=== PATIENT | female | born 1970 | race Caucasian/White ===

== ENCOUNTER 2017-02-22 22:49 | Emergency (ER) | payer MEDICARE, MEDICAID ==
[~2017-02-22] VITALS: Ht 152.4 cm; Wt 108.9 kg
[2017-02-22 22:49] VITALS: BP 134/84
[~2017-02-22 22:49] MED LIST: ASCO500T2 PO; ATOR10TA PO; B12 PO; CLON0.5T PO; FLUO40CA9 PO; GABA-585 PO; HUMALOG SQ; HYDR-971 PO; INSU100V SQ; LANTUS SQ; METF500T9 PO; OMEP20TA63 PO; TRAZ300T2 PO; VIT D3 PO; VITAMINB PO
--- NOTE | 2017-02-22 23:08 | ED.ADGEN ---
Past History Past Medical History: Anxiety, Diabetes, GERD, High Cholesterol, Hypertension, Other Past Surgical History: No Surgical History Alcohol Use: None Drug Use: None Adult General Chief Complaint Chief Complaint dysuria HPI HPI Patient is a 46 y/o female with dysuria x 1 day. she noticed blood in urine, pain suprapubic and with urination, no diarrhea, no fever, no vomiting Review of Systems Review of Systems Constitutional: Denies fever or chills [] Eyes: Denies change in visual acuity, redness, or eye pain [] HENT: Denies nasal congestion or sore throat [] Respiratory: Denies cough or shortness of breath [] Cardiovascular: No additional information not addressed in HPI [] GI: Denies abdominal pain, nausea, vomiting, bloody stools or diarrhea [] : + dysuria or hematuria [] Musculoskeletal: Denies back pain or joint pain [] Integument: Denies rash or skin lesions [] Neurologic: Denies headache, focal weakness or sensory changes [] Endocrine: Denies polyuria or polydipsia [] All other systems were reviewed and found to be within normal limits, except as documented in this note. Allergies Allergies Allergies Coded Allergies Type Severity Reaction Last Updated Verified ketorolac Allergy Severe Rash 09/11/15 Yes tramadol Allergy Severe Rash 09/11/15 Yes Sulfa (Sulfonamide Antibiotics) Allergy Intermediate Rash 09/11/15 Yes sulfamethoxazole Allergy Intermediate 09/11/15 Yes trimethoprim Allergy Intermediate 09/11/15 Yes Physical Exam Physical Exam Constitutional: Well developed, well nourished, no acute distress, non-toxic appearance. [] HENT: Normocephalic, atraumatic, bilateral external ears normal, oropharynx moist, no oral exudates, nose normal. [] Eyes: PERRLA, EOMI, conjunctiva normal, no discharge. [] Neck: Normal range of motion, no tenderness, supple, no stridor. [] Cardiovascular:Heart rate regular rhythm, no murmur [] Lungs & Thorax: Bilateral breath sounds clear to auscultation [] Abdomen: Bowel sounds normal, soft, no tenderness, no masses, no pulsatile masses. [] Skin: Warm, dry, no erythema, no rash. [] Back: No tenderness, no CVA tenderness. [] Extremities: No tenderness, no cyanosis, no clubbing, ROM intact, no edema. [] Neurologic: Alert and oriented X 3, normal motor function, normal sensory function, no focal deficits noted. [] Psychologic: Affect normal, judgement normal, mood normal. [] Current Patient Data Vital Signs Vital Signs Date Time Temp Pulse Resp B/P (MAP) Pulse Ox O2 Delivery O2 Flow Rate FiO2 02/22/17 22:49 98.2 82 16 96 Room Air Lab Results Laboratory Tests Test 02/22/17 23:00 Urine Collection Type Void Urine Color Yellow Urine Clarity Clear Urine pH 6.0 Urine Specific [place] 1.020 Urine Protein Neg (NEG-TRACE) Urine Glucose (UA) Neg mg/dL (NEG) Urine Ketones (Stick) Neg mg/dL (NEG) Urine Blood Trace (NEG) Urine Nitrite Neg (NEG) Urine Bilirubin Neg (NEG) Urine Urobilinogen Dipstick 0.2 mg/dL (0.2 mg/dL) Urine Leukocyte Esterase Neg (NEG) Urine RBC 0 /HPF (0-2) Urine WBC Occ /HPF (0-4) Urine Squamous Epithelial Cells Few /LPF Urine Bacteria Few /HPF (0-FEW) Urine Test Negative (NEG) EKG EKG [] Radiology/Procedures Radiology/Procedures [] Course & Med Decision Making Course & Med Decision Making Pertinent Labs and Imaging studies reviewed. (See chart for details) pt has taken macrobid before. will do 7 days macrobid. I asked her not to fill this for 1-2 days. Pt was just seen at [place] in [facility] adn discharge 1.5hours prior to checking in here. I confronted her about this. she finally admitted that she was there. she was there for esophageal obstruction and the doc stated she was swallowing water in the room with no difficulty. pt wanted an EGD and was upset that he would not do it per his note and she left. I asked her why she had that complaint when she is obviously fine now and then checks in here for dysuria. I reminded her that I saw her at my full-time hospital 1- 2 weeks ago and found out she had lied about being at another hospital literally hours prior with a full work-up done. she states she doesn't know why she keeps going to different hospitals multiple times in one day. I reminded her again to call her psychiatrist immediately to discuss her escalating poor behaviour [] Final Impression Final Impression dysuria[] Problems: Dragon Disclaimer Dragon Disclaimer This electronic medical record was generated, in whole or in part, using a voice recognition dictation system. Departure Time of Disposition: 23:35 Disposition: 01 HOME, SELF-CARE Diagnosis: dysuria Condition: STABLE Patient Instructions: Dysuria-Brief Additional Instructions: start macrobid today. return if symptoms worsen REA RODRIGUEZ MD Feb 22, 2017 23:08
[2017-02-22 23:12] LABS: BILIRUBIN,URINE NEG (NEG); CLARITY,URINE CLEAR; COLOR,URINE YELLOW; GLUCOSE,URINE NEG (NEG)
[2017-02-22 23:13] LABS: NITRITE,URINE NEG (NEG); UROBILINOGEN,URINE 0.2 mg/dL (0.2 mg/dL)
[2017-02-22 23:19] LABS: BACTERIA,URINE FEW /HPF (0-FEW); RBC,URINE 0 /HPF (0-2); SQUAMOUS EPITHELIAL CELL,UR FEW /LPF; U PREG PATIENT NEGATIVE (NEG); WBC,URINE OCC /HPF (0-4)
[2017-02-22] MEDS ORDERED: NITR100C62 PO (23:37)
== END 2017-02-22 23:48 | disposition home or self-care (01) ==
LOC: ER 22:49
DX: R30.0 Dysuria (principal); R31.9 Hematuria, unspecified; R10.30 Lower abdominal pain, unspecified; E11.9 Type 2 diabetes mellitus without complications; E78.00 Pure hypercholesterolemia, unspecified; I10 Essential (primary) hypertension; K21.9 Gastro-esophageal reflux disease without esophagitis; F41.9 Anxiety disorder, unspecified; Z88.6 Allergy status to analgesic agent; Z88.1 Allergy status to other antibiotic agents; Z88.2 Allergy status to sulfonamides; Z88.8 Allergy status to other drugs, medicaments and biological substances
CPT/HCPCS: 81001; 81025; 99284